=== PATIENT | male | born 1980 | race Caucasian/White ===

== ENCOUNTER → 2024-10-06 08:21 | Outpatient (REF) | payer OTHER, SELFPAY ==
[2024-10-06 09:38] LABS: % Eosinophils 7.6 % (0-6); % Immature Granulocytes 0.2 % (0-0.5); % Lymphocytes 47.2 % (20.5-51.1); % Monocytes 11.3 % (1.7-9.3); % Neutrophils 32.7 % (42.2-75.2); Absolute Basophils 0.1 10^3/uL (0-0.2); Absolute Eosinophils 0.5 10^3/uL (0-0.7); Absolute Lymphocytes 2.8 10^3/uL (1.2-3.4); Absolute Monocytes 0.7 10^3/uL (0.1-0.6); Absolute Neutrophils 1.9 10^3/uL (1.4-6.5); Hematocrit 45.9 % (39.0-52.0); Hemoglobin 15.5 g/dL (13.0-18.0); Mean Corp Hgb Conc. 33.8 g/dL (33.0-37.0); Mean Corpuscular Hgb 30.4 pg (27.0-31.0); Mean Platelet Volume 11.1 fL (7.4-10.4); Nucleated Red Blood Cells % 0 % (-); Platelet Count 149 10^3/uL (130-400); Red Cell Dist. Width 12.8 % (11.5-14.5); White Blood Cell Count 5.9 10^3/uL (4.8-10.8)
[2024-10-06 09:50] LABS: ALT (SGPT) 40 U/L (0-50); AST (SGOT) 32 U/L (17-59); Albumin 4.7 g/dl (3.5-5.0); Alkaline Phosphatase 104 U/L (38-126); Blood Urea Nitrogen 14 mg/dl (9-20); Calcium 9.7 mg/dl (8.4-10.2); Carbon Dioxide 27 mmol/L (22-30); Chloride 102 mmol/L (98-107); Glucose 94 mg/dl (70-99); HDL Cholesterol 79 mg/dl; LDL Cholesterol, Calculated 74 mg/dl; Potassium 4.3 mmol/L (3.5-5.1); Sodium 140 mmol/L (135-145); Total Bilirubin 0.6 mg/dl (0.2-1.3); Total Cholesterol 168 mg/dl (50-199); Total Protein 7.3 g/dl (6.3-8.2); Triglyceride 77 mg/dl (10-149); Very Low Density Lipoprotein 15 mg/dl (0-30); eGFR > 60.00
== END ==
LOC: REG 08:21
PROVIDERS: ATTENDING PHYSICIAN Internal Medicine
DX: Z00.00 Encounter for general adult medical examination without abnormal findings (principal); M54.50 Low back pain, unspecified; M75.42 Impingement syndrome of left shoulder
CPT/HCPCS: 36415; 80053; 80061; 85025